=== PATIENT | male | born 1970 | race Hispanic/Latino ===

== ENCOUNTER → 2024-12-15 | Outpatient (CLI) | payer BC ==
[~2024-12-15] MED LIST: GADOTERATE MEGLUMINE 10 MMOL/20 ML VIAL IV ONE
--- NOTE | 2024-12-15 16:37 | HMCIMG ---
MR PELVIS W/WO CON HISTORY: Malignant neoplasm of rectum COMPARISON: None TECHNIQUE: MRI of the pelvis was performed utilizing multiple pulse sequences in axial, coronal and sagittal planes. Patient was given 70 cc of cloudy skin through intravenous route. FINDINGS: There are motion artifacts degrading the image cord. Pelvic sidewalls are symmetric bilaterally. No abnormal signal intensity is seen of the visualized bony structure. There is rectal wall thickening measuring 11 mm by neoplastic process not excluded. There is mild left scoliosis. No definite pelvic adenopathy or ascites is seen. The bladder is moderately distended. IMPRESSION: 1. Mild rectal wall thickening. This may relate to neoplastic process. No evidence of pelvic adenopathy or ascites is seen.
--- NOTE | 2024-12-15 16:39 | HMCIMG ---
MR ABDOMEN W/WO CON HISTORY: Follicular neoplasm of rectum COMPARISON: None TECHNIQUE: MRI of the abdomen was performed utilizing multiple pulse sequences in axial, coronal and sagittal planes. Patient was given 17 cc of cloudy scan through intravenous route. FINDINGS: No pleural effusion seen bilaterally. The liver measures 14 cm. Subcentimeter hepatic cyst is seen. Common duct measures 7.8 mm. No MR evidence of common duct stone is seen. There is no evidence of adenopathy or ascites. Adrenal glands and pancreas are unremarkable. Both kidneys are seen without hydronephrosis. Large amount of fecal material is seen in the colon. IMPRESSION: 1. No evidence of adenopathy or ascites. Subcentimeter hepatic cyst.
== END | disposition home or self-care (01) ==
LOC: RAH 12:55
PROVIDERS: ATTEND Internal Medicine
DX: C20 Malignant neoplasm of rectum (principal); N32.89 Other specified disorders of bladder; K76.89 Other specified diseases of liver; M41.86 Other forms of scoliosis, lumbar region
CPT/HCPCS: 74183; 72197; A9575